=== PATIENT | female | born 1940 | race Two or more races ===

== ENCOUNTER 2019-08-19 18:20 | Emergency (ER) | payer OTHER ==
[~2019-08-19] VITALS: Ht 162.6 cm; Wt 57.2 kg
[~2019-08-19 18:20] MED LIST: BABY ASPIRIN81 MG; COZAAR100 MG; ENBREL50 MG/M1; FOLIC ACID0.4 MG; PLAVIX75 MG; SULFASALAZINE500 M1; SYNTHROID50 MCG
[2019-08-19] MEDS ORDERED: LEVOTHYROXINE25 MCG (19:03)
[2019-08-19] MEDS ORDERED: TOPROL XL50 M1 (19:04)
[2019-08-19] MEDS ORDERED: LIPITOR20 MG (19:05)
== END 2019-08-19 21:16 | disposition home or self-care (01) ==
LOC: ER 18:20
DX: G45.8 Other transient cerebral ischemic attacks and related syndromes (principal)

== ENCOUNTER 2019-09-09 09:45 | Outpatient (CLI) | payer OTHER ==
[~2019-09-09 09:45] MED LIST changes: +LEVOTHYROXINE25 MCG; +LIPITOR20 MG; +TOPROL XL50 M1
== END 2019-09-09 09:56 | disposition home or self-care (01) ==
LOC: LAB 09:45
DX: D47.3 Essential (hemorrhagic) thrombocythemia (principal); E03.8 Other specified hypothyroidism; Z86.73 Personal history of transient ischemic attack (TIA), and cerebral infarction without residual deficits; D51.1 Vitamin B12 deficiency anemia due to selective vitamin B12 malabsorption with proteinuria; D51.0 Vitamin B12 deficiency anemia due to intrinsic factor deficiency; E06.3 Autoimmune thyroiditis; R97.0 Elevated carcinoembryonic antigen [CEA]; R97.8 Other abnormal tumor markers; G45.8 Other transient cerebral ischemic attacks and related syndromes; M06.89 Other specified rheumatoid arthritis, multiple sites; D68.8 Other specified coagulation defects; E11.9 Type 2 diabetes mellitus without complications; D50.8 Other iron deficiency anemias; E78.2 Mixed hyperlipidemia; D51.8 Other vitamin B12 deficiency anemias

== ENCOUNTER 2019-09-09 11:42 | Outpatient (CLI) | payer OTHER | END 2019-09-09 11:45 | disposition home or self-care (01) | LOC: MAMO-SONO 11:42 | DX: Z12.31 Encounter for screening mammogram for malignant neoplasm of breast (principal); Z87.898 Personal history of other specified conditions; D47.3 Essential (hemorrhagic) thrombocythemia; Z86.73 Personal history of transient ischemic attack (TIA), and cerebral infarction without residual deficits; C45.7 Mesothelioma of other sites; E11.9 Type 2 diabetes mellitus without complications; E78.2 Mixed hyperlipidemia; E03.8 Other specified hypothyroidism; M06.89 Other specified rheumatoid arthritis, multiple sites; Z63.8 Other specified problems related to primary support group ==

== ENCOUNTER → 2019-11-02 09:58 | Outpatient (CLI) | payer OTHER | END | disposition home or self-care (01) | LOC: LAB 09:58 | DX: M05.779 Rheumatoid arthritis with rheumatoid factor of unspecified ankle and foot without organ or systems involvement (principal); D45 Polycythemia vera; D47.3 Essential (hemorrhagic) thrombocythemia; Z86.73 Personal history of transient ischemic attack (TIA), and cerebral infarction without residual deficits; G45.8 Other transient cerebral ischemic attacks and related syndromes; E11.9 Type 2 diabetes mellitus without complications; E79.2 Myoadenylate deaminase deficiency; E03.8 Other specified hypothyroidism; M06.9 Rheumatoid arthritis, unspecified; D51.0 Vitamin B12 deficiency anemia due to intrinsic factor deficiency; D51.1 Vitamin B12 deficiency anemia due to selective vitamin B12 malabsorption with proteinuria ==

== ENCOUNTER 2020-02-06 08:31 | Outpatient (CLI) | payer OTHER | END 2020-02-06 09:21 | disposition home or self-care (01) | LOC: LAB 08:31 | DX: E11.65 Type 2 diabetes mellitus with hyperglycemia (principal); E78.2 Mixed hyperlipidemia; I10 Essential (primary) hypertension; Z12.11 Encounter for screening for malignant neoplasm of colon; E55.9 Vitamin D deficiency, unspecified; E20.9 Hypoparathyroidism, unspecified; E03.8 Other specified hypothyroidism; D63.0 Anemia in neoplastic disease; M05.79 Rheumatoid arthritis with rheumatoid factor of multiple sites without organ or systems involvement; D50.8 Other iron deficiency anemias; D47.3 Essential (hemorrhagic) thrombocythemia; D51.1 Vitamin B12 deficiency anemia due to selective vitamin B12 malabsorption with proteinuria; Z86.73 Personal history of transient ischemic attack (TIA), and cerebral infarction without residual deficits; G45.8 Other transient cerebral ischemic attacks and related syndromes; M06.9 Rheumatoid arthritis, unspecified; E06.3 Autoimmune thyroiditis; D51.8 Other vitamin B12 deficiency anemias ==

== ENCOUNTER → 2020-08-18 09:49 | Outpatient (CLI) | payer OTHER | END | disposition home or self-care (01) | LOC: LAB 09:49 | PROVIDERS: ATTEND Podiatrist | DX: L03.116 Cellulitis of left lower limb (principal); K71.6 Toxic liver disease with hepatitis, not elsewhere classified ==

== ENCOUNTER 2020-08-19 09:51 | Outpatient (CLI) | payer OTHER | END 2020-08-19 10:12 | disposition home or self-care (01) | LOC: LAB 09:51 | PROVIDERS: ATTEND Internal Medicine Hematology & Oncology | DX: D50.8 Other iron deficiency anemias (principal); I10 Essential (primary) hypertension; R70.0 Elevated erythrocyte sedimentation rate; D51.8 Other vitamin B12 deficiency anemias; D47.3 Essential (hemorrhagic) thrombocythemia; D51.1 Vitamin B12 deficiency anemia due to selective vitamin B12 malabsorption with proteinuria; Z86.73 Personal history of transient ischemic attack (TIA), and cerebral infarction without residual deficits; G45.8 Other transient cerebral ischemic attacks and related syndromes; E11.9 Type 2 diabetes mellitus without complications; E78.2 Mixed hyperlipidemia; E03.8 Other specified hypothyroidism; M06.9 Rheumatoid arthritis, unspecified; E06.3 Autoimmune thyroiditis ==

== ENCOUNTER → 2020-12-29 10:01 | Outpatient (CLI) | payer OTHER | END | disposition home or self-care (01) | LOC: LAB 10:01 | PROVIDERS: ATTEND Internal Medicine Hematology & Oncology | DX: D50.8 Other iron deficiency anemias (principal); R79.89 Other specified abnormal findings of blood chemistry; I10 Essential (primary) hypertension; R74.02 Elevation of levels of lactic acid dehydrogenase [LDH]; K76.89 Other specified diseases of liver; D51.8 Other vitamin B12 deficiency anemias; E03.8 Other specified hypothyroidism; R97.8 Other abnormal tumor markers; R97.0 Elevated carcinoembryonic antigen [CEA]; D47.3 Essential (hemorrhagic) thrombocythemia; D51.1 Vitamin B12 deficiency anemia due to selective vitamin B12 malabsorption with proteinuria; Z86.73 Personal history of transient ischemic attack (TIA), and cerebral infarction without residual deficits; G45.8 Other transient cerebral ischemic attacks and related syndromes; E11.9 Type 2 diabetes mellitus without complications; E78.2 Mixed hyperlipidemia; M06.9 Rheumatoid arthritis, unspecified; E06.3 Autoimmune thyroiditis; E55.9 Vitamin D deficiency, unspecified; M05.79 Rheumatoid arthritis with rheumatoid factor of multiple sites without organ or systems involvement ==

== ENCOUNTER → 2021-03-28 10:35 | Outpatient (CLI) | payer OTHER | END | disposition home or self-care (01) | LOC: LAB 10:35 | PROVIDERS: ATTEND Internal Medicine Hematology & Oncology | DX: D47.3 Essential (hemorrhagic) thrombocythemia (principal); D51.1 Vitamin B12 deficiency anemia due to selective vitamin B12 malabsorption with proteinuria; Z86.73 Personal history of transient ischemic attack (TIA), and cerebral infarction without residual deficits; G45.8 Other transient cerebral ischemic attacks and related syndromes; E11.9 Type 2 diabetes mellitus without complications; E78.2 Mixed hyperlipidemia; E03.8 Other specified hypothyroidism; M06.89 Other specified rheumatoid arthritis, multiple sites; E06.3 Autoimmune thyroiditis; D50.8 Other iron deficiency anemias; R79.89 Other specified abnormal findings of blood chemistry; I10 Essential (primary) hypertension; R74.02 Elevation of levels of lactic acid dehydrogenase [LDH]; K76.89 Other specified diseases of liver; D51.8 Other vitamin B12 deficiency anemias; R97.0 Elevated carcinoembryonic antigen [CEA]; R97.8 Other abnormal tumor markers; E11.65 Type 2 diabetes mellitus with hyperglycemia; D64.89 Other specified anemias; Z12.11 Encounter for screening for malignant neoplasm of colon ==

== ENCOUNTER 2021-03-28 11:10 | Outpatient (CLI) | payer OTHER | END 2021-03-28 11:19 | disposition home or self-care (01) | LOC: MAMO-SONO 11:10 | PROVIDERS: ATTEND Internal Medicine Hematology & Oncology | DX: Z12.31 Encounter for screening mammogram for malignant neoplasm of breast (principal); Z87.898 Personal history of other specified conditions; N64.89 Other specified disorders of breast; D47.3 Essential (hemorrhagic) thrombocythemia; D51.1 Vitamin B12 deficiency anemia due to selective vitamin B12 malabsorption with proteinuria; Z86.73 Personal history of transient ischemic attack (TIA), and cerebral infarction without residual deficits; G45.8 Other transient cerebral ischemic attacks and related syndromes; E11.9 Type 2 diabetes mellitus without complications; E78.2 Mixed hyperlipidemia; E03.8 Other specified hypothyroidism; M06.89 Other specified rheumatoid arthritis, multiple sites; E06.3 Autoimmune thyroiditis ==

== ENCOUNTER → 2021-03-29 14:23 | Outpatient (CLI) | payer OTHER | END | disposition home or self-care (01) | LOC: LAB 14:23 | PROVIDERS: ATTEND General Practice | DX: E11.65 Type 2 diabetes mellitus with hyperglycemia (principal); I10 Essential (primary) hypertension; D64.89 Other specified anemias; E78.2 Mixed hyperlipidemia; Z12.11 Encounter for screening for malignant neoplasm of colon; E03.8 Other specified hypothyroidism ==

== ENCOUNTER → 2021-05-02 13:19 | Outpatient (CLI) | payer OTHER | END | disposition home or self-care (01) | LOC: NUCLEAR 13:00 | PROVIDERS: ATTEND Internal Medicine Endocrinology, Diabetes & Metabolism | DX: M81.0 Age-related osteoporosis without current pathological fracture (principal) ==

== ENCOUNTER 2021-08-03 09:38 | Outpatient (CLI) | payer OTHER | END 2021-08-03 10:48 | disposition home or self-care (01) | LOC: LAB 09:38 | PROVIDERS: ATTEND Internal Medicine Hematology & Oncology | DX: D50.8 Other iron deficiency anemias (principal); R79.89 Other specified abnormal findings of blood chemistry; I10 Essential (primary) hypertension; R74.02 Elevation of levels of lactic acid dehydrogenase [LDH]; K76.89 Other specified diseases of liver; D51.8 Other vitamin B12 deficiency anemias; E03.8 Other specified hypothyroidism; R97.0 Elevated carcinoembryonic antigen [CEA]; R97.8 Other abnormal tumor markers; D47.3 Essential (hemorrhagic) thrombocythemia; D51.1 Vitamin B12 deficiency anemia due to selective vitamin B12 malabsorption with proteinuria; Z86.73 Personal history of transient ischemic attack (TIA), and cerebral infarction without residual deficits; G45.8 Other transient cerebral ischemic attacks and related syndromes; E11.9 Type 2 diabetes mellitus without complications; E78.2 Mixed hyperlipidemia; M06.9 Rheumatoid arthritis, unspecified; E06.3 Autoimmune thyroiditis ==

== ENCOUNTER → 2021-10-11 12:10 | Outpatient (CLI) | payer OTHER | END | disposition home or self-care (01) | LOC: LAB 12:10 | PROVIDERS: ATTEND Radiology Diagnostic Radiology | DX: R10.84 Generalized abdominal pain (principal) ==

== ENCOUNTER → 2021-10-26 | Outpatient (CLI) | payer OTHER | END | disposition home or self-care (01) | LOC: MRI 11:15 | PROVIDERS: ATTEND Neuromusculoskeletal Medicine & OMM | DX: G93.89 Other specified disorders of brain (principal); I63.89 Other cerebral infarction; R42 Dizziness and giddiness; H93.3X9 Disorders of unspecified acoustic nerve; I72.8 Aneurysm of other specified arteries; I65.29 Occlusion and stenosis of unspecified carotid artery; Q28.2 Arteriovenous malformation of cerebral vessels | CPT/HCPCS: 70544; 70551 ==

== ENCOUNTER 2021-12-08 10:06 | Outpatient (CLI) | payer OTHER | END 2021-12-08 10:18 | disposition home or self-care (01) | LOC: LAB 10:06 | PROVIDERS: ATTEND Internal Medicine Hematology & Oncology | DX: E03.8 Other specified hypothyroidism (principal); Z20.828 Contact with and (suspected) exposure to other viral communicable diseases; E78.2 Mixed hyperlipidemia; E11.65 Type 2 diabetes mellitus with hyperglycemia; E06.3 Autoimmune thyroiditis; D47.3 Essential (hemorrhagic) thrombocythemia; D51.1 Vitamin B12 deficiency anemia due to selective vitamin B12 malabsorption with proteinuria; Z86.73 Personal history of transient ischemic attack (TIA), and cerebral infarction without residual deficits; G45.8 Other transient cerebral ischemic attacks and related syndromes; E11.9 Type 2 diabetes mellitus without complications ==

== ENCOUNTER 2022-02-02 10:00 | Outpatient (CLI) | payer OTHER | END 2022-02-02 10:54 | disposition home or self-care (01) | LOC: LAB 10:00 | PROVIDERS: ATTEND Internal Medicine Hematology & Oncology | DX: D50.8 Other iron deficiency anemias (principal); R79.9 Abnormal finding of blood chemistry, unspecified; I10 Essential (primary) hypertension; R74.02 Elevation of levels of lactic acid dehydrogenase [LDH]; K76.89 Other specified diseases of liver; D51.8 Other vitamin B12 deficiency anemias; D47.3 Essential (hemorrhagic) thrombocythemia; G45.9 Transient cerebral ischemic attack, unspecified; E11.9 Type 2 diabetes mellitus without complications; E78.2 Mixed hyperlipidemia; E03.8 Other specified hypothyroidism; M06.9 Rheumatoid arthritis, unspecified; E06.3 Autoimmune thyroiditis; Z86.73 Personal history of transient ischemic attack (TIA), and cerebral infarction without residual deficits ==

== ENCOUNTER 2022-11-05 16:59 | Emergency (ER) | payer OTHER ==
[~2022-11-05] VITALS: Ht 162.6 cm; Wt 49.4 kg
[2022-11-05] MEDS ORDERED: JANUMET 50-1,01 EACH PO (18:06)
[2022-11-05] MEDS ORDERED: JARDIANCE25 MG PO (18:06)
== END 2022-11-05 20:41 | disposition home or self-care (01) ==
LOC: ER 16:59
DX: S93.402A Sprain of unspecified ligament of left ankle, initial encounter (principal); W19.XXXA Unspecified fall, initial encounter; Y93.9 Activity, unspecified; Y92.9 Unspecified place or not applicable; Y99.9 Unspecified external cause status; E11.9 Type 2 diabetes mellitus without complications; Z79.84 Long term (current) use of oral hypoglycemic drugs; I10 Essential (primary) hypertension

== ENCOUNTER 2022-11-12 20:10 | Emergency (ER) | payer OTHER ==
[~2022-11-12] VITALS: Ht 162.6 cm; Wt 49.9 kg
[~2022-11-12 20:10] MED LIST changes: +JANUMET 50-1,01 EACH PO; +JARDIANCE25 MG PO
== END 2022-11-12 22:45 | disposition home or self-care (01) ==
LOC: ER 20:10
DX: S62.609A Fracture of unspecified phalanx of unspecified finger, initial encounter for closed fracture (principal); X58.XXXA Exposure to other specified factors, initial encounter; Y93.9 Activity, unspecified; Y92.9 Unspecified place or not applicable; M79.662 Pain in left lower leg

== ENCOUNTER 2022-12-27 11:12 | Outpatient (CLI) | payer OTHER | END 2022-12-27 11:13 | disposition home or self-care (01) | LOC: LAB 11:12 | PROVIDERS: ATTEND Internal Medicine Hematology & Oncology | DX: D50.8 Other iron deficiency anemias (principal); R79.9 Abnormal finding of blood chemistry, unspecified; I10 Essential (primary) hypertension; R74.02 Elevation of levels of lactic acid dehydrogenase [LDH]; K76.89 Other specified diseases of liver; D51.8 Other vitamin B12 deficiency anemias; E55.9 Vitamin D deficiency, unspecified; D47.3 Essential (hemorrhagic) thrombocythemia; D51.1 Vitamin B12 deficiency anemia due to selective vitamin B12 malabsorption with proteinuria; G45.9 Transient cerebral ischemic attack, unspecified; E11.9 Type 2 diabetes mellitus without complications; E78.2 Mixed hyperlipidemia; E03.8 Other specified hypothyroidism; M06.9 Rheumatoid arthritis, unspecified; E06.3 Autoimmune thyroiditis ==

== ENCOUNTER 2023-01-06 16:30 | Emergency (ER) | payer OTHER ==
[~2023-01-06] VITALS: Ht 162.6 cm; Wt 50.3 kg
[2023-01-06] MEDS ORDERED: JANUMET 50-5001 EACH PO (17:42)
[2023-01-06] MEDS ORDERED: ENBREL50 MG/1 M1 SUBCUTANEO (17:43)
[2023-01-06] MEDS ORDERED: CANDESARTAN-HC1 EAC2 PO (17:44)
[2023-01-06] MEDS ORDERED: GABAPENTIN300 M2 PO (17:44)
== END 2023-01-06 20:25 | disposition home or self-care (01) ==
LOC: ER 16:30
DX: U07.1 COVID-19 (principal)

== ENCOUNTER 2023-05-09 10:55 | Outpatient (CLI) | payer OTHER ==
[~2023-05-09 10:55] MED LIST changes: +CANDESARTAN-HC1 EAC2 PO; +ENBREL50 MG/1 M1 SUBCUTANEO; +GABAPENTIN300 M2 PO; +JANUMET 50-5001 EACH PO
== END 2023-05-09 10:58 | disposition home or self-care (01) ==
LOC: LAB 10:55
PROVIDERS: ATTEND Psychiatry & Neurology Clinical Neurophysiology
DX: I63.9 Cerebral infarction, unspecified (principal); D75.838 Other thrombocytosis

== ENCOUNTER 2023-05-14 11:52 | Outpatient (CLI) | payer OTHER | END 2023-05-14 12:02 | disposition home or self-care (01) | LOC: MRI 11:52 | PROVIDERS: ATTEND Psychiatry & Neurology Clinical Neurophysiology | DX: I63.9 Cerebral infarction, unspecified (principal); R27.0 Ataxia, unspecified | CPT/HCPCS: 70551 ==

== ENCOUNTER → 2023-07-27 10:22 | Outpatient (CLI) | payer OTHER | END | disposition home or self-care (01) | LOC: LAB 10:22 | PROVIDERS: ATTEND Internal Medicine Hematology & Oncology | DX: D50.8 Other iron deficiency anemias (principal); R79.9 Abnormal finding of blood chemistry, unspecified; I10 Essential (primary) hypertension; R74.02 Elevation of levels of lactic acid dehydrogenase [LDH]; K76.89 Other specified diseases of liver; D51.8 Other vitamin B12 deficiency anemias; R97.8 Other abnormal tumor markers; R97.1 Elevated cancer antigen 125 [CA 125]; R97.0 Elevated carcinoembryonic antigen [CEA]; D47.3 Essential (hemorrhagic) thrombocythemia; D51.1 Vitamin B12 deficiency anemia due to selective vitamin B12 malabsorption with proteinuria; Z86.73 Personal history of transient ischemic attack (TIA), and cerebral infarction without residual deficits; G45.9 Transient cerebral ischemic attack, unspecified; E78.2 Mixed hyperlipidemia; E03.8 Other specified hypothyroidism; M06.9 Rheumatoid arthritis, unspecified; E06.3 Autoimmune thyroiditis; M05.79 Rheumatoid arthritis with rheumatoid factor of multiple sites without organ or systems involvement; E11.65 Type 2 diabetes mellitus with hyperglycemia; E51.9 Thiamine deficiency, unspecified ==

== ENCOUNTER 2023-10-14 08:19 | Outpatient (CLI) | payer OTHER ==
[2023-10-14 09:07] LABS: PH,URINE 5.5 (5.0-8.0); URINE APPEARANCE Clear; URINE BILIRRUBIN Negative (NEGATIVE); URINE BLOOD Negative; URINE COLOR Yellow; URINE LEUKOCYTE Negative; URINE NITRATE Negative; URINE PROTEIN Negative (NEGATIVE); URINE UROBILINOGEN 0.2 E.U./dl
[2023-10-14 09:11] LABS: HEMATOCRIT 32.3 % (36.0-45.00); HEMOGLOBIN 10.4 g/dL (12.0-15.00); MEAN CELL VOLUME 99.1 fL (80.00-100.00); MEAN CORPUSCULAR HGB CONC 32.3 g/dl (32.0-36.0); PLATELET COUNT 289 K/uL (150-450); RED BLOOD COUNT 3.26 M/uL (4.00-6.00); RED CELL DISTRIBUTION WIDTH 18.2 % (11.5-14.5); URINE BACTERIA 42.7 uL (0.0-1933); URINE EPITHELIAL CELLS 2.7 uL (0.0-38.8); URINE WBC 11.5 uL (0.0-23.2)
[2023-10-14 09:13] LABS: URINE GLUCOSE >=1000 MG/DL (NEGATIVE); URINE RBC 1.2 uL (0.0-20.8)
[2023-10-14 09:25] LABS: ERYTHROCYTE SEDIMENTATION RATE 59 mm/hr
[2023-10-14 10:00] LABS: BILIRUBIN TOTAL 0.45 mg/dL (0.3-1.2); CALCIUM 9.9 mg/dL (8.5-10.1); CREATININE SERUM 1.73 mg/dL (0.55-1.02); GFR 28.27; GLOBULINA 3.6 G/DL (2.4-3.5); POTASSIUM 5.67 mEq/L (3.5-5.1); TOTAL PROTEIN 7.6 gm/dL (6.4-8.2)
[2023-10-14 13:56] LABS: PLATELET ESTIMATE NORMAL (NORMAL)
== END 2023-10-14 08:20 | disposition home or self-care (01) ==
LOC: LAB 08:19
PROVIDERS: ATTEND Internal Medicine Hematology & Oncology
DX: D50.8 Other iron deficiency anemias (principal); R79.9 Abnormal finding of blood chemistry, unspecified; I10 Essential (primary) hypertension; R74.02 Elevation of levels of lactic acid dehydrogenase [LDH]; K76.89 Other specified diseases of liver; D51.8 Other vitamin B12 deficiency anemias; R19.5 Other fecal abnormalities; Z12.11 Encounter for screening for malignant neoplasm of colon; R97.0 Elevated carcinoembryonic antigen [CEA]; R97.8 Other abnormal tumor markers; D51.1 Vitamin B12 deficiency anemia due to selective vitamin B12 malabsorption with proteinuria; Z86.73 Personal history of transient ischemic attack (TIA), and cerebral infarction without residual deficits; G45.9 Transient cerebral ischemic attack, unspecified; E11.9 Type 2 diabetes mellitus without complications; E78.2 Mixed hyperlipidemia; E03.8 Other specified hypothyroidism; M06.9 Rheumatoid arthritis, unspecified; E06.3 Autoimmune thyroiditis; M05.79 Rheumatoid arthritis with rheumatoid factor of multiple sites without organ or systems involvement

== ENCOUNTER 2023-10-16 12:50 | Outpatient (CLI) | payer OTHER ==
[2023-10-16 14:02] LABS: ob NEGATIVE (NEGATIVE)
== END 2023-10-16 12:51 | disposition home or self-care (01) ==
LOC: LAB 12:50
PROVIDERS: ATTEND Internal Medicine Hematology & Oncology
DX: D50.8 Other iron deficiency anemias (principal); R79.9 Abnormal finding of blood chemistry, unspecified; I10 Essential (primary) hypertension; R74.02 Elevation of levels of lactic acid dehydrogenase [LDH]; K76.89 Other specified diseases of liver; D51.8 Other vitamin B12 deficiency anemias; Z12.11 Encounter for screening for malignant neoplasm of colon; R97.0 Elevated carcinoembryonic antigen [CEA]; R97.8 Other abnormal tumor markers; D51.1 Vitamin B12 deficiency anemia due to selective vitamin B12 malabsorption with proteinuria; Z83.79 Family history of other diseases of the digestive system; G45.9 Transient cerebral ischemic attack, unspecified; E11.9 Type 2 diabetes mellitus without complications; E78.2 Mixed hyperlipidemia; E03.8 Other specified hypothyroidism; M06.9 Rheumatoid arthritis, unspecified; E06.3 Autoimmune thyroiditis

== ENCOUNTER → 2023-10-30 | Outpatient (CLI) | payer OTHER | END | disposition home or self-care (01) | LOC: TOM 10-29 10:35 | PROVIDERS: ATTEND Internal Medicine Hematology & Oncology | DX: R97.0 Elevated carcinoembryonic antigen [CEA] (principal); E11.9 Type 2 diabetes mellitus without complications; N18.9 Chronic kidney disease, unspecified; D47.3 Essential (hemorrhagic) thrombocythemia; D51.1 Vitamin B12 deficiency anemia due to selective vitamin B12 malabsorption with proteinuria; Z86.73 Personal history of transient ischemic attack (TIA), and cerebral infarction without residual deficits; G45.9 Transient cerebral ischemic attack, unspecified; E03.8 Other specified hypothyroidism; M06.9 Rheumatoid arthritis, unspecified; E06.3 Autoimmune thyroiditis ==